=== PATIENT | male | born 1945 | race Caucasian/White ===

== ENCOUNTER 2019-08-22 12:58 | Observation (INO) | payer MEDICARE, OTHER ==
[~2019-08-22] VITALS: Ht 182.9 cm; Wt 113.4 kg
[~2019-08-22 12:58] MED LIST: ACET325 PO; ALLERGY RELIEF10 MG PO; ATOR10; ATOR20 PO; Augmentin 875-1 EACH PO; BENZ100A PO; CEPH500 PO; Docusate Sodiu1 EACH PO; FLUT.05NI; GUAI600T33 PO; HYDACE5 PO; HYDCHL25; HYDCHL25 PO; Ipratropium Bro30 ML; LANS30EC; LANS30EC PO; LISI10 PO; LISI20; LISI20 PO; MULTIVITAMIN; MULVITSO PO; NAPR220 PO; NAPR500 PO; ONE DAILY FOR1 EAC1 PO; OXYACE5T PO; OXYC5 PO; PREG150 PO; QUET200; QUET200 PO; SALMOI6.5; SENN187 PO; [UNRECOGNIZED DRUG - REMARK]
[2019-08-22] MEDS ORDERED: PREG200 PO (16:38)
[2019-08-22] MEDS ORDERED: MONTELUKAST SOD10 MG PO (16:38)
--- NOTE | 2019-08-22 18:39 | NUR ---
ASSUMED CARE PT ALERT AND ORIENTED. VS STABLE. O2 SATS REMAIN ABOVE 90% ON RA. BP STABLE. LABETOLOL ORDERED, BUT HELD DUE TO BP NORMALIZED. HR NSR WITH PAC. PT ABLE TO STAND TO TX TO BED. PT ABLE TO RECALL THE EVENTS OF HIS ADMISSION. FAMILY AT BEDSIDE. PLAN FOR EEG TOMORROW. AWAITING RESULTS OF MRI. WILL CONTINUE TO MONITOR AND REPORT TO ONCOMING RN. CALL LIGHT IN REACH.
--- NOTE | 2019-08-23 04:07 | NUR ---
LINEMARKER SUMMARY NO ACUTE CHANGES THIS SHIFT. PT AAOX4 AND PLEASANT. STANDBY ASSIST TO BATHROOM FOR SAFETY. PT DENIES N/V, DIZZINESS, OR ANY SYMPTOMS SIMILAR TO EPISODE THAT BROUGHT HIM TO HOSPITAL. SEIZURE PADS PLACED ON SIDE RAILS OF BED FOR SAFETY. SR W/ MANY PAC'S/PVC'S WITH AVG HR 60-70 PER B2B SALES MANAGER. PT DENIES PAIN, N/V, SOB. VSS, WILL CONTINUE TO MONITOR.
--- NOTE | 2019-08-23 08:50 | NUR ---
AM NOTE.... ASSUMED CARE OF PT APROX 0700. PT IS A&Ox4 AND IND IN THE ROOM. PT WAS ADMITTED FOR ENCEPHALOPATHY. PT IS A&Ox4 AND HAS BEEN SINCE BEFORE ADMIT. PT'S VS STABLE. PT DENIES CHEST PAIN/PRESSURE N/V OR SOB. L/S CLEAR ON RA WITH O2 SATS >95%. BT PRESENT AND NORMOACTIVE. NO EDEMA NOTED ON ASSSESSMENT. CALL LIGHT IN REACH, WILL CONTINUE TO MONITOR.
[2019-08-23] MEDS ORDERED: SERT25 PO (11:20)
--- NOTE | 2019-08-23 12:02 | NUR ---
PT D/C. PT D/C'D HOME, IV REMOVED WNL. D/C EDUCATION PROVIDED TO PT ON NEW MEDICATION. PT STATED HIS UNDERSTANDING. ALL OF PT'S BELONGINGS PACKED AND SENT WITH THE PT. PT WAS ESCORTED OUT VIA W/C.
== END 2019-08-23 12:09 | disposition home or self-care (01) ==
LOC: ER 12:58 → PCU 12:59
PROVIDERS: ADMIT Hospitalist
DX: G92 Toxic encephalopathy (principal); R07.89 Other chest pain; F41.9 Anxiety disorder, unspecified; I10 Essential (primary) hypertension; G47.30 Sleep apnea, unspecified; E78.5 Hyperlipidemia, unspecified; E66.9 Obesity, unspecified; R53.1 Weakness; Z96.651 Presence of right artificial knee joint; Z91.040 Latex allergy status; Z79.1 Long term (current) use of non-steroidal anti-inflammatories (NSAID); Z79.899 Other long term (current) drug therapy
CPT/HCPCS: 36415; 70450; 70551; 73590; 80053; 84484; 85025; 93005; 93010; 96360; 96361; 99285-25; G0378; J7030

== ENCOUNTER 2020-08-11 14:09 | Emergency (ER) | payer MEDICARE, OTHER ==
[~2020-08-11] VITALS: Ht 177.8 cm; Wt 122.5 kg
[~2020-08-11 14:09] MED LIST changes: +MONTELUKAST SOD10 MG PO; +PREG200 PO; +SERT25 PO
[2020-08-11] MEDS ORDERED: OXYC10TA19 PO (14:38)
== END 2020-08-11 15:40 | disposition home or self-care (01) ==
LOC: ER 14:09
DX: M16.12 Unilateral primary osteoarthritis, left hip (principal); I10 Essential (primary) hypertension; E78.5 Hyperlipidemia, unspecified; Z79.899 Other long term (current) drug therapy
CPT/HCPCS: 96372; 99283-25; J1170

== ENCOUNTER 2020-08-23 22:03 | Emergency (ER) | payer MEDICARE, OTHER ==
[~2020-08-23] VITALS: Ht 175.3 cm; Wt 113.4 kg
[~2020-08-23 22:03] MED LIST changes: +OXYC10TA19 PO
== END 2020-08-24 01:14 | disposition home or self-care (01) ==
LOC: ER 22:03
DX: M25.552 Pain in left hip (principal); I10 Essential (primary) hypertension; E78.5 Hyperlipidemia, unspecified; K21.9 Gastro-esophageal reflux disease without esophagitis; Z79.899 Other long term (current) drug therapy; Z91.040 Latex allergy status
CPT/HCPCS: 64450; 96372-59; 99283-25; J1170